=== PATIENT | male | born 1970 | race Two or more races ===

== ENCOUNTER 2018-10-16 13:13 | Emergency (ER) | payer OTHER ==
[~2018-10-16] VITALS: Ht 172.7 cm; Wt 108.6 kg
[2018-10-16 13:41] VITALS: BP 114/85
--- NOTE | 2018-10-16 13:50 | NUR ---
PT AMBULATED TO LOBBY WITH VSS.
--- NOTE | 2018-10-16 14:00 | NUR ---
LAB GETTING BLOOD AT THIS TIME
[2018-10-16 14:35] LABS: APPEARANCE,URINE HAZY (CLEAR); BASOPHILS % (AUTO) 0.4 % (0.0-2.0); BILIRUBIN,URINE 1+ (NEGATIVE); BLOOD, URINE NEGATIVE (NEGATIVE); COLOR,URINE YELLOW (YELLOW); EOSINOPHILS % (AUTO) 0.3 % (0.0-4.0); HEMATOCRIT 44.7 % (36-52); HEMOGLOBIN 15.4 g/dL (12.0-18.0); LEUKOCYTE ESTERASE ,URINE NEGATIVE (NEGATIVE); LYMPHOCYTES # (AUTO) 1.6 K/uL (2.0-11.5); LYMPHOCYTES % (AUTO) 17.7 % (20.5-51.1); MEAN CORPUSCULAR HEMOGLOBIN 30 pg (27-31); MEAN CORPUSCULAR HGB CONC 35 g/dL (33-37); MEAN CORPUSCULAR VOLUME 85.7 fL (80-94); MONOCYTES # (AUTO) 0.6 K/uL (0.8-1.0); MONOCYTES % (AUTO) 6.2 % (1.7-9.3); NEUTROPHILS # (AUTO) 6.8 K/uL (1.8-7.7); NEUTROPHILS % (AUTO) 75.4 % (42.2-75.2); NITRITE, URINE NEGATIVE (NEGATIVE); PH,URINE 5.5 (5.0-9.0); PLATELET COUNT (AUTO) 245 K/uL (140-450); RED BLOOD CELL COUNT(AUTO) 5.21 MIL/uL (4.20-6.10); RED CELL DISTRIBUTION WIDTH 13.9 % (11.6-13.7); UGLUCOSE NEGATIVE (NEGATIVE); WHITE BLOOD COUNT (AUTO) 9.1 K/uL (4.8-10.8)
[2018-10-16 14:45] LABS: CARBON DIOXIDE 28.2 mmol/L (21-32); POTASSIUM 4.2 mmol/L (3.5-5.1)
[2018-10-16 14:46] LABS: RBC,URINE 0-5 /HPF (0-5); WBC,URINE 0-5 /HPF (0-5)
[2018-10-16 14:52] LABS: ALBUMIN 4.1 g/dL (3.4-5.0); TOTAL BILIRUBIN 0.6 mg/dL (0.0-1.0)
--- NOTE | 2018-10-16 16:16 | NUR ---
PT TO ER BED 11
--- NOTE | 2018-10-16 16:45 | NUR ---
PATIENT TAKEN TO XRAY AT THIS TIME.
--- NOTE | 2018-10-16 16:53 | NUR ---
PT IS A 48 Y/O MALE WHO PRESENTS TO THE ED C/O BILATERAL LEG PAIN X1 MONTH. PT STATES THAT IT PRIMARILY AFFECTS HIS R LEG, REPORTS LEG TIGHTNESS WHEN HE WALKS WELL CHEST TIGHTNESS. PT DENIES COUGH, SOB, N/V/D. PT AWAKE AND ALERT, RR EVEN/UNLABORED. PT REPOSITIONED FOR COMFORT, BED IN LOWEST POSITION. ER MD DR. PAUL NOTIFIED. WILL CONTINUE TO MONITOR. HX-HIGH CHOL, VIT-D Addendum: 10/16/18 at 1700 by MEDDCV PT IS A 48 Y/O MALE WHO PRESENTS TO THE ED C/O BILATERAL LEG PAIN X1 MONTH. PT STATES THAT IT PRIMARILY AFFECTS HIS R LEG, REPORTS LEG TIGHTNESS WHEN HE WALKS WELL CHEST TIGHTNESS. PT REPORTS 10/10 ACHING LEG PAIN AND CHEST PAIN. PT DENIES COUGH, SOB, N/V/D. PT AWAKE AND ALERT, RR EVEN/UNLABORED. PT REPOSITIONED FOR COMFORT, BED IN LOWEST POSITION. ER MD DR. PAUL NOTIFIED. WILL CONTINUE TO MONITOR. HX-HIGH CHOL, VIT-D
--- NOTE | 2018-10-16 17:17 | NUR ---
US AT BEDSIDE FOR INTERVENTION.
[2018-10-16 18:13] LABS: BARBITURATE, URINE NEG. ng/ml (NEG <=200); BENZODIAZEPINE, URINE NEG. ng/mL (NEG <=200); CANNABINOID, URINE NEG. ng/mL (NEG <=50); COCAINE, URINE NEG. ng/mL (NEG <=300); OPIATE, URINE NEG. ng/mL (NEG <=2000); PHENCYCLIDINE SCREEN,URINE NEG. ng/mL (NEG <=25)
[2018-10-16 18:30] LABS: URIC ACID 6.6 mg/dL (2.6-7.2)
--- NOTE | 2018-10-16 18:35 | NUR ---
PATIENT RESTING AT THIS TIME, NO SIGNS OF DISTRESS.
[2018-10-16 18:41] LABS: D-DIMER < 100 ng/ml (0-400)
[2018-10-16 18:42] LABS: MAGNESIUM 2.1 mg/dL (1.8-2.4)
[2018-10-16 19:07] VITALS: BP 127/74
--- NOTE | 2018-10-16 19:07 | NUR ---
Pt report given to DIVINE Hassan. Transfer of care at this time.
--- NOTE | 2018-10-16 19:08 | NUR ---
Patient discharged with v/s stable. Written and verbal after care instructions given and explained. Patient alert, oriented and verbalized understanding of instructions. Ambulatory with steady gait. All questions addressed prior to discharge. ID band removed. Patient advised to follow up with PMD. Rx of vistaril given. Patient educated on indication of medication including possible reaction and side effects. Opportunity to ask questions provided and answered.
== END 2018-10-16 19:08 | disposition home or self-care (01) ==
LOC: MED 13:13
DX: G25.81 Restless legs syndrome (principal); E78.00 Pure hypercholesterolemia, unspecified
CPT/HCPCS: 36415; 73552; 73590; 80053; 80305; 81001; 83735; 84550; 85025; 85379; 85610; 93005; 93971; 99284; Q0092